=== PATIENT | female | born 1970 | race Caucasian/White ===

== ENCOUNTER 2024-04-09 14:19 | Emergency (ER) | payer BC, OTHER, SELFPAY ==
[2024-04-09 14:20] VITALS: BMI 23.1
[2024-04-09 14:40] VITALS: BP 119/78; PULSE 100; RESP 16; TEMP 36.6; O2SAT 96
--- NOTE | 2024-04-09 15:15 | XR_ITS ---
Examination: Abdomen sonogram, Limited Date and time of exam: April 09, 2024 1454 hours INDICATIONS: Abdominal pain beginning 2 days ago Technique: Real-time brown scale transabdominal sonographic images of the upper abdomen obtained. Findings: Multiple gallstones Gallbladder wall 0.7 cm Common bile duct enlarged 0.9 cm no definite stones Pancreatic head 2.3 cm, cystic lesion in the pancreatic head 15 mm Liver 15.3 cm no focal liver lesions Normal hepatopedal portal venous flow Patent IVC IMPRESSION: Cholelithiasis Suspicious for cholecystitis Enlarged common bile duct with cystic lesion in the pancreatic head, recommend MRCP follow-up
[2024-04-09] MEDS: ONDANSETRON ODT 4 MG TABRAP PO (15:21)
[2024-04-09] MEDS: HYDROcodone/APAP 5/325 TABLET 1 TAB PO (15:21)
--- NOTE | 2024-04-09 15:30 | PD.EDABDPN ---
ED Abdominal Pain RME/HPI General Chief Complaint: Abdominal Pain Stated complaint: ABD PAIN x 2 DAYS, HX GALLSTONES Time seen by provider: 04/09/24 15:23 Arrival date/time: 04/09/24 14:19 53-year-old female with no known medical history presents to the emergency room with a chief complaint of 10 out of 10 right upper quadrant abdominal pain and tenderness x 2 days. Source: patient Mode of arrival: ambulatory Limitations: no limitations Related Data Home Medications ?Medication ?Instructions ?Recorded ?Confirmed conjugated estrogens 0.9 mg tablet 0.9 mg PO QDAY 11/18/23 11/18/23 (Premarin) Allergies Allergy/AdvReac Type Severity Reaction Status Date / Time Penicillins Allergy Severe Swelling Verified 04/09/24 14:22 of Lip/Tongue/Throat Review of Systems Review of Systems Systems Reviewed: All systems reviewed, normal except as documented Constitutional Constitutional: Reports system reviewed and no additional complaints, except as documented, Denies fatigue, Denies fever(s), Denies headache(s) and Denies weakness Eyes Eyes: Reports system reviewed and no additional complaints, except as documented, Denies blurry vision and Denies change in vision ENT Ears, Nose, Mouth, and Throat: Reports system reviewed and no additional complaints, except as documented, Denies otalgia, Denies headache(s), Denies nasal congestion, Denies throat swelling and Denies vertigo Cardiovascular Cardiovascular: Reports system reviewed and no additional complaints, except as documented, Denies chest pain, Denies dyspnea and Denies dyspnea on exertion Respiratory Respiratory: Reports system reviewed and no additional complaints, except as documented, Denies chest congestion, Denies cough, Denies dyspnea, Denies dyspnea on exertion and Denies wheezing Gastrointestinal Gastrointestinal: Reports system reviewed and no additional complaints, except as documented, Reports abdominal pain, Reports cramping, Reports nausea and Reports vomiting Genitourinary Genitourinary: Reports system reviewed and no additional complaints, except as documented Musculoskeletal Musculoskeletal: Reports system reviewed and no additional complaints, except as documented and Denies back pain Integumentary/Breasts Skin/Breast: Reports system reviewed and no additional complaints, except as documented and Denies wounds Neurologic Neurologic: Reports system reviewed and no additional complaints, except as documented, Denies confusion, Denies headache(s), Denies lack of coordination, Denies vertigo and Denies weakness Psychiatric Psychiatric: Reports system reviewed and no additional complaints, except as documented, Denies anxiety, Denies confusion, Denies depression, Denies paranoia, Denies suicidal ideation and Denies tactile hallucinations Endocrine Endocrine: Reports system reviewed and no additional complaints, except as documented and Denies fatigue Hematologic/Lymphatic Hematologic/Lymphatic: Reports system reviewed and no additional complaints, except as documented and Denies lymphadenopathy Allergic/Immunologic Allergic/Immunologic: Reports system reviewed and no additional complaints, except as documented, Denies throat swelling, Denies urticaria and Denies wheezing Past Medical History Past Medical History NEUROLOGIC: Positive Neurological Disorders and Migraine; Negative Seizures CARDIAC: Positive Cardiac Disorders and Hypercholesterolemia; Negative Congestive Heart Failure RESPIRATORY: Positive Asthma (as child); Negative Chronic Obstructive Pulmonary Disease (COPD) GASTROINTESTINAL: Positive Gastrointestinal Disorders, Gastrointestinal Bleed, Hemorrhoids and Gastroesophageal Reflux Disease GENITOURINARY: Negative Genitourinary Disorders or Renal Disease MUSCULOSKELETAL: Positive Musculoskeletal Disorders and Arthritis (psoriatic arthritis) ENDOCRINE: Negative Endocrine Disorders, Diabetes Mellitus Type 1 or Diabetes Mellitus Type 2 HEMATOLOGIC: Positive Blood Disorders (thrombocytopenia) PSYCHO/SOCIAL: Positive Depression and Anxiety OTHER HISTORY: Positive Chicken Pox and Measles; Negative Falls, Blood Transfusions, Anesthesia Reactions or Cancer Surgical History SURGICAL: Positive Hysterectomy and Tubal Ligation Social History SMOKING STATUS: Never smoker ED Exam General Limitations: Present no limitations General appearance: Present alert and in no apparent distress Head Head exam: Present atraumatic Eye Eye exam: Present normal appearance, PERRL and EOMI ENT ENT exam: Present normal exam, normal oropharynx and mucous membranes moist Neck Neck exam: Present normal inspection, full ROM and trachea midline Chest Chest inspection: Present normal inspection and symmetric chest wall rise Respiratory Respiratory exam: Present normal lung sounds bilaterally Cardiovascular Cardiovascular exam: Present regular rate, normal rhythm and normal heart sounds Abdominal Exam Abdominal exam: Present soft, tenderness, normal bowel sounds and Carolina's sign; Absent distention, guarding, rebound or rigidity Abdominal tenderness: Present RUQ and moderate Extremities Exam Extremities exam: Present normal inspection and full ROM Back Exam Back exam: Present normal inspection and full ROM Neurological Exam Neurological exam: Present alert, oriented X3 and CN II-XII intact Psychiatric Psychiatric exam: Present normal affect and normal mood Skin Skin exam: Present warm, dry, intact and normal color Course Quality Measures none Orders Category Date Time Status US gall bladder Stat Exams 04/09/24 15:15 Ordered CBC Stat Lab 04/09/24 15:15 Ordered CMP [Comprehensive Metabolic Panel] Stat Lab 04/09/24 15:15 Ordered HCG Qualitative,Urine Stat Lab 04/09/24 15:15 Ordered Lipase Stat Lab 04/09/24 15:15 Ordered UA [Urinalysis] Stat Lab 04/09/24 15:15 Ordered Urine Culture Stat Lab 04/09/24 15:15 Ordered HYDROcodone*/APAP 5/325 [[place] 5/325] Med 04/09/24 15:15 Discontinued 1 tab PO X1 ONE Ondansetron Odt [Zofran Odt] Med 04/09/24 15:15 Discontinued 4 mg PO X1 ONE Vital Signs Vital signs: Vital Signs Temperature 98 F 04/09/24 14:40 Pulse Rate 100 04/09/24 14:40 Respiratory Rate 16 04/09/24 14:40 Blood Pressure 119/78 04/09/24 14:40 Pulse Oximetry (%) 96 04/09/24 14:40 Oxygen Delivery Method Room Air 04/09/24 14:40 O2 saturation 96% within normal limits Abdominal Pain MDM MDM Narrative MDM Narrative:: 53-year-old female with no known medical history presents to the emergency room with a chief complaint of 10 out of 10 right upper quadrant abdominal pain and tenderness x 2 days. Patient data External records reviewed:: [facility] previous records Clinical information provided by:: patient Social determinants that could affect healthcare access:: none Patient has the following chronic illnesses:: No chronic illness How is presenting disease/condition affected by chronic disease/condition?: no chronic disease Evaluation data The following diagnostics were reviewed and interpreted by me:: lab results and radiology exam(s) Lab and/or radiology exams considered but not ordered:: Labs and radiology exams considered and ordered Interpretation Summary: Ultrasound gallbladder- Medications / Prescriptions Medications or Prescriptions considered but not ordered:: Medication given Medication administrations:: Medication Administration History Discontinued Medications Hydrocodone Bitart/Acetaminophen (Hydrocodone/Apap 5/325 Tablet) 1 tab PO X1 ONE Stop: 04/09/24 15:16 Last Admin: 04/09/24 15:21 Dose: 1 tab Documented By: Ondansetron HCl (Ondansetron Odt 4 Mg Tabrap) 4 mg PO X1 ONE; Protocol Stop: 04/09/24 15:16 Last Admin: 04/09/24 15:21 Dose: 4 mg Documented By: Medication given Consultations Consultation(s) initiated? (list below): No Diagnosis Differential diagnosis abdominal pain: abdominal pain, gastroenteritis, pancreatitis and other (Cholelithiasis/cholecystitis) Admission Indicated Admission indicated?: not indicated Admission Request Was there a request for admission?: No Disposition Plan Disposition Plan: Discharge Discharge Attestation Discharge Attestation: The patient and all family members were given an opportunity to ask questions and understood the discharge instructions. Discharge instructions specifically effects, indications for sooner follow up or return to the emergency department, and the expected course of current diagnosis. Patient condition: Stable Discharge Plan Prescriptions/Referrals Prescriptions/Med Rec: No Action Premarin 0.9 mg tablet 0.9 mg PO QDAY Patient Comments: take 1 tablet by mouth once daily Patient/Caregiver Discharge Instructions Print Language: Romanian
[2024-04-09 15:56] LABS: Basophils % (Auto) 0 % (0-2.5); Eosinophils # (Auto) 0.1 Thou/mm3 (0.0-0.5); Eosinophils % (Auto) 2 % (0-10); Hematocrit 34.3 % (36.0-46.0); Hemoglobin 11.5 g/dL (12.0-16.0); Immature Granulocytes % (Auto) 0 % (0-0); Lymphocytes # (Auto) 0.9 Thou/mm3 (1.0-4.8); Lymphocytes % (Auto) 19 % (10-50); Mean Corpuscular HGB Conc 33.5 g/dl (31.0-37.0); Mean Corpuscular Volume 98 fL (80-100); Monocytes # (Auto) 0.4 Thou/mm3 (0.0-0.8); Monocytes % (Auto) 8 % (0-12); Neutrophils # (Auto) 3.2 Thou/mm3 (1.8-7.7); Neutrophils % (Auto) 70 % (37-80); Nucleated Red Blood Cell % 0 /100 WBC (0); RDW Standard Deviation 57.2 fL (36.4-46.3); Red Blood Count 3.49 Miln/mm3 (4.00-5.20); White Blood Count 4.6 Thou/mm3 (3.6-11.0)
[2024-04-09 15:58] LABS: Platelet Count 76 Thou/mm3 (140-440)
[2024-04-09 16:18] LABS: Collection Type, Urine Clean Catch
[2024-04-09 16:18] LABS: Alanine Aminotransferase 421 U/L (10-49); Albumin, Serum 4.7 gm/dL (3.5-5.0); Albumin/Globulin Ratio 1.7 (1.2-2.2); Alkaline Phosphatase 308 U/L (46-116); Anion Gap 6 (7-16); Aspartate Amino Transferase 357 U/L (0-34); BUN/Creatinine Ratio 15 Ratio (12-20); Bilirubin,Total 2.2 mg/dL (0.3-1.2); Blood Urea Nitrogen 12 mg/dL (9-23); Calcium 9.9 mg/dL (8.3-10.6); Calcium (Corrected) 9.9 mg/dL (8.5-10.1); Carbon Dioxide 30.4 mMol/L (20.0-31.0); Chloride 105 mMol/L (98-107); Creatinine (Component) 0.8 mg/dL (0.6-1.3); Estimated Creatinine Clearance 71.8 mL/min (>60); Globulin 2.7 gm/dL (2.3-3.5); Glucose 105 mg/dL (74-106); Lipase 83 U/L (12-53); Osmolality,Calculated 280 (275-295); Potassium 4.2 mMol/L (3.4-5.1); Sodium 141 mMol/L (136-145); Total Protein 7.4 gm/dL (5.7-8.2); eGFR > 60 See Note
--- NOTE | 2024-04-09 16:31 | PD.EDRME ---
Rapid Medical Screening Exam E Arrival date/time: 04/09/24 14:19 53-year-old female with no known medical history presents to the emergency room with a chief complaint of 10 out of 10 right upper quadrant abdominal pain and tenderness x 2 days. I have greeted and performed a focused initial assessment of this patient. A comprehensive ED assessment and evaluation of the patient, analysis of all test results, and completion of the medical decision making process will be conducted by additional ED providers. Chief Complaint: Abdominal Pain Time Seen by Provider: 04/09/24 15:23 Vital signs: Vital Signs Temperature 98 F 04/09/24 14:40 Pulse Rate 100 04/09/24 14:40 Respiratory Rate 16 04/09/24 14:40 Blood Pressure 119/78 04/09/24 14:40 Pulse Oximetry (%) 96 04/09/24 14:40 Oxygen Delivery Method Room Air 04/09/24 14:40 Vital signs reviewed by provider: Yes
[2024-04-09 16:53] LABS: HCG Qualitative,Urine Negative
[2024-04-09 16:56] LABS: Bacteria,Urine Rare; Bilirubin,Urine 2+ (Negative); Blood,Urine Negative (Negative); Clarity,Urine Turbid (Clear/Hazy); Color,Urine Drk-Yellow (Lt Yel-Yel); Glucose, Urine Negative (Negative); Ketones,Urine Negative (Negative); Leukocyte Esterase,Urine Negative (Negative); Nitrite,Urine Negative (Negative); Protein,Urine 1+ (Neg - Trace); RBC,Urine < 1 /hpf (0-3); Specific Gravity,Urine 1.029 (1.001-1.035); Squamous Epithelial Cell,Urine 24 /hpf (0-5); WBC,Urine 4 /hpf (0-5)
[2024-04-09 17:11] LABS: Slide Review Platelets confirmed
[2024-04-09 17:43] VITALS: BP 114/73; PULSE 87; RESP 16; TEMP 36.4; O2SAT 96
[2024-04-09 18:22] VITALS: BP 117/80; PULSE 88; RESP 19; TEMP 36.7; O2SAT 100
--- NOTE | 2024-04-09 18:23 | PC.NURSE ---
Dr. Barker at bedside.
--- NOTE | 2024-04-09 18:38 | EDNOTE_ITS ---
ED Abdominal Pain RME/HPI General Chief Complaint: Abdominal Pain Stated complaint: ABD PAIN x 2 DAYS, HX GALLSTONES Time seen by provider: 04/09/24 15:23 Arrival date/time: 04/09/24 14:19 Source: patient Mode of arrival: ambulatory Limitations: no limitations RME / HPI RME / HPI narrative: 04/09/24 14:19 53-year-old female with no known medical history presents to the emergency room with a chief complaint of 10 out of 10 right upper quadrant abdominal pain and tenderness x 2 days. I have greeted and performed a focused initial assessment of this patient. A comprehensive ED assessment and evaluation of the patient, analysis of all test results, and completion of the medical decision making process will be conducted by additional ED providers. Dr. Lomax?s Main ED Evaluation: 53-year-old female with history of hypercholesterolemia, asthma, depression, anxiety, thrombocytopenia accompanied by spouse who presents to the emergency department for complaints of abdominal pain. Patient notes onset began about 2 days ago. It is accompanied with nausea, vomiting and nonbloody diarrhea. She denies any other associated symptoms, aggravating factors or medical complaints. She reports she took Tylenol at about 0800 and Motrin at about 1400 with minor relief. She describes the pain as sharp in nature and rates the pain 8 out of 10 in severity. No history of tobacco or substance use. History of social alcohol use. - - - - - - - - - - - - Chief complaint: Abdominal pain HPI: Patient is a 53-year-old female with past medical history of hypercholesterolemia, asthma, pancreatitis, and mood symptoms secondary to postmenopausal, who presented to the ED, accompanied by spouse for persistent abdominal pain over the last 48 hours. Patient states pain changes in intensity from between 4?8/10, and is worse on eating. Pain is mostly localized in the right upper quadrant and epigastric region. She has had similar symptoms in the past, with last ED visit in August 2023. She denies any changes in diet recently, however endorses severe food intolerance over the last 48 hours. She has had multiple episodes of nonbloody, nonbilious vomiting and severe nausea. She does complain of intermittent constipation, however no issues in bowel movements recently. Patient took Tylenol at about 0800 and Motrin at about 1400 with minor relief. Currently she describes pain as sharp in nature, located in the right upper quadrant region, and 8/10 in severity. On imaging, abdominal ultrasound was remarkable for cholelithiasis and CBD dilation. Patient was given Dilaudid 1.5 x 1 in the ED, and was informed would likely need transfer for ERCP, to different facility. Medication list: Wellbutrin Estrogen supplements Allergies: Penicillin?angioedema Social history: Marital?Status:? Tobacco?Use:?Denies ETOH?Use:?Socially Drug?Note:?Denies Social?History?Note:?Lives?with? Family history: Father?colon cancer at the age of 55 Patient had a recent colonoscopy in November 2023 pending biopsy results - - - - - - - - - - - - - - - - - - - - - MD complaint: abdominal pain Onset (ago): day(s) Consistency: colicky Location: RUQ and epigastric Severity: severe Severity scale (1-10): 8 Quality: cramping and aching Radiation: LUQ and epigastric Migration to: no migration Relieving factors: nothing Exacerbating factors: eating Context: history of similar episodes Associated symptoms: nausea, vomiting and constipation Treatments prior to arrival: NSAIDs Related Data Home Medications ?Medication ?Instructions ?Recorded ?Confirmed conjugated estrogens 0.9 mg tablet 0.9 mg PO QDAY 11/18/23 11/18/23 (Premarin) Allergies Allergy/AdvReac Type Severity Reaction Status Date / Time Penicillins Allergy Severe Swelling Verified 04/09/24 14:22 of Lip/Tongue/Throat Review of Systems Review of Systems Systems Reviewed: All systems reviewed, normal except as documented Narrative Review of Systems: GENERAL: Denies fevers/chills or diaphoresis. HEENT: Denies headache or visual/hearing changes. Denies nasal discharge. NEURO: Denies unusual weakness or difficulty speaking. CARDIO: Denies chest pain or palpitations. PULM: Denies SOB, coughing, or wheezing. GI: RUQ abdominal pain, N/V, no C/D. Reports having BMs URO: Denies burning/itching/pain/urinary changes. WHEAT WASHER: Denies menstrual changes, hot flashes. MSK/EXT/SKIN: Denies joint/skeletal/muscle pain, issues/changes in upper or lower extremities, itchiness, or superficial pain. PSYCH: Cooperative, pleasant mood & affect. The rest of the review of systems is otherwise negative. Past Medical History Past Medical History NEUROLOGIC: Positive Neurological Disorders and Migraine; Negative Seizures CARDIAC: Positive Cardiac Disorders and Hypercholesterolemia; Negative Congestive Heart Failure RESPIRATORY: Positive Asthma (as child); Negative Chronic Obstructive Pulmonary Disease (COPD) GASTROINTESTINAL: Positive Gastrointestinal Disorders, Gastrointestinal Bleed, Hemorrhoids and Gastroesophageal Reflux Disease GENITOURINARY: Negative Genitourinary Disorders or Renal Disease MUSCULOSKELETAL: Positive Musculoskeletal Disorders and Arthritis (psoriatic arthritis) ENDOCRINE: Negative Endocrine Disorders, Diabetes Mellitus Type 1 or Diabetes Mellitus Type 2 HEMATOLOGIC: Positive Blood Disorders (thrombocytopenia) PSYCHO/SOCIAL: Positive Depression and Anxiety OTHER HISTORY: Positive Chicken Pox and Measles; Negative Falls, Blood Transfusions, Anesthesia Reactions or Cancer Surgical History SURGICAL: Positive Hysterectomy and Tubal Ligation Social History SMOKING STATUS: Never smoker ED Exam Narrative Physical exam: Constitutional Alert, afebrile, oriented x4 and nauseous HEENT Vision grossly intact. Patent nares. Trachea midline. Respiratory Chest normal on inspection and clear to auscultation bilaterally. Cardiovascular S1 and S2 audible, RRR. No murmurs or carotid bruit. No gross JVD. Abdominal Soft, RUQ (+douglas's sign) and epigastric tenderness to palpation. BS + Genitourinary No bladder tenderness, no flank pain. Normal to palpation. Musculoskeletal Extremities tone within normal limits. No LE edema. Neurological CN II - XII grossly intact. Extremity motor and sensation grossly intact. Skin Warm, dry and intact. No apparent lesions. No jaundice. Psychiatric Patient has a good affect, is cooperative. General Limitations: Present no limitations Course Quality Measures none Orders Category Date Time Status EKG (ED ONLY) *Do not use* NOW Care 04/09/24 18:44 Completed EKG (ED Only) Stat Exams 04/09/24 18:43 Ordered US gall bladder Stat Exams 04/09/24 15:15 Completed CBC Stat Lab 04/09/24 15:43 Completed CMP [Comprehensive Metabolic Panel] Stat Lab 04/09/24 15:43 Completed HCG Qualitative,Urine Stat Lab 04/09/24 15:59 Completed Lipase Stat Lab 04/09/24 15:43 Completed UA [Urinalysis] Stat Lab 04/09/24 15:59 Completed Urine Culture Stat Lab 04/09/24 15:59 Received HYDROcodone*/APAP 5/325 [[place] 5/325] Med 04/09/24 15:15 Discontinued 1 tab PO X1 ONE HYDROmorphone INJ [Dilaudid Inj] Med 04/09/24 18:56 Discontinued 0.5 mg IVP Q30MIN PRN HYDROmorphone INJ [Dilaudid Inj] Med 04/09/24 18:43 Discontinued 0.5 mg IVP Q4HR PRN Ondansetron Odt [Zofran Odt] Med 04/09/24 15:15 Discontinued 4 mg PO X1 ONE Sodium Chloride 0.9% 1000 ml [Ns] 1,000 ml Med 04/09/24 18:45 Discontinued IV 250 mls/hr Vital Signs Vital signs: Vital Signs Temperature 98 F 04/09/24 14:40 Pulse Rate 100 04/09/24 14:40 Respiratory Rate 16 04/09/24 14:40 Blood Pressure 119/78 04/09/24 14:40 Pulse Oximetry (%) 96 04/09/24 14:40 Oxygen Delivery Method Room Air 04/09/24 14:40 Abdominal Pain MDM MDM Narrative MDM Narrative:: 19:47 Case d/w Dr. Aldana, gastroenterology at [facility], who was made aware of the patient?s HPI, PMHx, lab and/or radiology results. Accepts patient for ER to ER transfer. Scribe Attestation: IAbdoul, am scribing for and in the presence of Dr. Lomax. Provider Notation: Although this document has been carefully reviewed, there may still be some phonetic and other typographical errors. These errors are purely grammatical due to imperfections in the software program and should not be construed in any way to compromise the substance of the patient's medical care during this visit. Patient data External records reviewed:: [facility] previous records Clinical information provided by:: patient Social determinants that could affect healthcare access:: none Patient has the following chronic illnesses:: Hypercholesterolemia, Asthma, Psoriatic Arthritis, Thrombocytopenia, Depression, Anxiety, Hysterectomy, Tubal Ligation How is presenting disease/condition affected by chronic disease/condition?: uneffected by Evaluation data The following diagnostics were reviewed and interpreted by me:: lab results and radiology exam(s) Lab and/or radiology exams considered but not ordered:: None Interpretation Summary: Examination: Abdomen sonogram, Limited Date and time of exam: April 09, 2024 1454 hours INDICATIONS: Abdominal pain beginning 2 days ago Findings: Multiple gallstones Gallbladder wall 0.7 cm Common bile duct enlarged 0.9 cm no definite stones Pancreatic head 2.3 cm, cystic lesion in the pancreatic head 15 mm Liver 15.3 cm no focal liver lesions Normal hepatopedal portal venous flow Patent IVC IMPRESSION: Cholelithiasis Suspicious for cholecystitis Enlarged common bile duct with cystic lesion in the pancreatic head, recommend MRCP follow-up Dictated By: Mendoza Wells MD Medications / Prescriptions Medications or Prescriptions considered but not ordered:: None Medication administrations:: Medication Administration History Discontinued Medications Hydrocodone Bitart/Acetaminophen (Hydrocodone/Apap 5/325 Tablet) 1 tab PO X1 ONE Stop: 04/09/24 15:16 Last Admin: 04/09/24 15:21 Dose: 1 tab Documented By: Hydromorphone HCl (Hydromorphone Inj 2 Mg/Ml Vial) 0.5 mg IVP Q4HR PRN PRN Reason: pain 5-10 Stop: 04/14/24 18:42 Hydromorphone HCl (Hydromorphone Inj 2 Mg/Ml Vial) 0.5 mg IVP Q30MIN PRN PRN Reason: pain 5-10 Stop: 04/14/24 18:42 Last Admin: 04/09/24 19:32 Dose: 0.5 mg Documented By: SARABJIT Sodium Chloride (Ns) 1,000 mls @ 250 mls/hr IV .Q4H EDIS Stop: 05/09/24 18:44 Last Admin: 04/09/24 19:34 Dose: 250 mls/hr Documented By: SARABJIT Ondansetron HCl (Ondansetron Odt 4 Mg Tabrap) 4 mg PO X1 ONE; Protocol Stop: 04/09/24 15:16 Last Admin: 04/09/24 15:21 Dose: 4 mg Documented By: As above Consultations Consultation(s) initiated? (list below): Yes Consultation #1 (Physician, Specialty, Details): See MDM Diagnosis Differential diagnosis abdominal pain: other (Choledocholithiasis, Cholelithiasis, Cholecystitis, Cholangitis, Pancreatitis, Atypical angina) Most likely diagnosis given after review of the tests above:: Choledocholithiasis Admission Indicated Admission indicated?: not indicated Explain why admission is indicated or not indicated:: Higher level of care for ERCP Admission Request Was there a request for admission?: No Disposition Plan Disposition Plan: Transfer (ER to ER transfer) Discharge Plan Plan Patient Disposition: [facility] Being Transferred to: [facility] Needed for Transfer: Gastroenterology Prescriptions/Referrals Prescriptions/Med Rec: No Action Premarin 0.9 mg tablet 0.9 mg PO QDAY Patient Comments: take 1 tablet by mouth once daily Referrals: Caio (PCP),MD Neftaly [Primary Care Provider] - In 1 week Problem List Clinical Impression: Abdominal pain Patient/Caregiver Discharge Instructions Print Language: Serbian Stand Alone Forms: Clarice Award Info., Patient Portal Info Letter
[2024-04-09] MEDS: HYDROmorphone INJ 2 MG/ML VIAL 0.5 MG IVP (19:32)
[2024-04-09] MEDS: SODIUM CHLORIDE 0.9% 1000 ML 1,000 ML 250 ML IV (19:34)
[2024-04-09 19:38] VITALS: BP 110/74; PULSE 82; RESP 16; TEMP 36.6; O2SAT 97
--- NOTE | 2024-04-09 19:53 | PC.NURSE ---
1926 [address]TA[address] [facility] [email or web address] [facility] SENT. 1930 CONTA[address]ED [facility] SENT. [address] MEJIA TALKING TO [facility] AT THIS TIME.
--- NOTE | 2024-04-09 20:14 | PC.NURSE ---
1952 PT ACCEPTED TO [facility] BY DR CHANDLER. REPORT ED TO ED [phone].
[2024-04-09 20:38] VITALS: BP 138/85; PULSE 83; RESP 16; TEMP 36.8; O2SAT 98
--- NOTE | 2024-04-09 20:45 | PC.NURSE ---
Report called to hernan [facility]
== END 2024-04-09 20:54 | disposition short-term general hospital (02) ==
PROVIDERS: Nurse Practitioner Family; Emergency Provider Emergency Medicine; PCP Family Medicine
DX: K80.20 Calculus of gallbladder without cholecystitis without obstruction (principal); K83.8 Other specified diseases of biliary tract; K86.2 Cyst of pancreas
CPT/HCPCS: 36415; 76705; 80053; 81001; 81025; 83690; 85025; 87086; 96374; 99284; J3490; J7030; Q0162; A9270

== ENCOUNTER 2024-06-29 09:25 | Day surgery (SDC) | payer BC, OTHER, SELFPAY ==
[2024-06-28 12:17] VITALS: BMI 27.3
[2024-06-29] VITALS (8 sets, daily range): BP systolic 125–149; BP diastolic 88–97; PULSE 102–111; RESP 11–19; TEMP 36.4–37.1; O2SAT 92–98; BMI 27.1
[2024-06-29] MEDS: ONDANSETRON INJ 2 MG/ML INJ 2 ML 4 MG IV (11:55)
[2024-06-29] MEDS: MIDAZOLAM INJ 1 MG/ML VIAL 2 ML (ASD USE ONLY) 2 MG IV (11:56)
[2024-06-29] MEDS: LIDOCAINE JELLY 2% (Urojet) 10 ML TUBE TOP (11:56)
[2024-06-29] MEDS: fentaNYL CIT INJ 50 mCg/ML AMP 2ML (ASD USE ONLY) IV (11:56)
[2024-06-29] MEDS: DiphenhydrAMINE INJ 50 MG/ML VIAL 25 MG IV (11:56)
[2024-06-29] MEDS: SODIUM CHLORIDE 0.9% 500 ML 500 ML 20 ML IV (11:56)
== END 2024-06-29 12:57 | disposition home or self-care (01) ==
PROVIDERS: PCP Family Medicine; Referring Provider Specialist; Visit Provider Specialist
PROC: 0DJD8ZZ Inspection of Lower Intestinal Tract, Via Natural or Artificial Opening Endoscopic (ICD-10-PCS; CPT 45330; principal; 2024-06-29 10:45)
DX: K64.3 Fourth degree hemorrhoids (principal); Z80.0 Family history of malignant neoplasm of digestive organs
CPT/HCPCS: 46221; 45330; A4649; J1200; J2250; J2405; J3010; J7040

== ENCOUNTER → 2024-07-25 | Outpatient (CLI) | payer BC, SELFPAY ==
--- NOTE | 2024-07-25 08:00 | XR_ITS ---
Examination: Breast ultrasound, unilateral, left complete Date and time of exam: July 25, 2024 0801 hours INDICATIONS: Mammogram September 10, 2022 25 mm focal asymmetry outer left breast, history biopsy BI-RADS 4 suspicious nodule 1:00 position left breast, which measured 18 x 29 mm on left breast sonogram 12/15/2021 Technique: Real-time brown scale ultrasonographic imaging performed left breast including all 4 quadrants as well as nipple retroareolar and axillary region. Findings: 2:00 nodule circumscribed 4 x 4 mm 3:00 cyst 5 x 11 mm Retroareolar nodule lobular margins 4 x 9 mm Retroareolar nodule 4 x 9 mm indistinct margins with breast biopsy marker IMPRESSION: BI-RADS Category 3: Probably benign findings One additional 6 month left breast sonogram follow-up recommended to document stability of multiple solid nodules described above
--- NOTE | 2024-07-25 08:30 | XR_ITS ---
Examination: Screening digital mammography, bilateral Computer aided detection 3-D breast Tomosynthesis, bilateral Date and time of exam: July 25, 2024 0829 hours Compared to mammograms dating to August 30, 2008 Indication: Screening, patient states lump left breast note is beginning 3 weeks ago, family history breast cancer, history left breast mass biopsy January 11, 2022, negative Technique: Nonmagnified MLO, CC views of the breasts to been obtained, reconstructed from 3-D Tomosynthesis images. R2 computer aided detection program utilized for evaluation of suspicious masses and/or abnormal calcifications. 3-D Tomosynthesis images obtained. Findings: The breasts are extremely dense, which limits the sensitivity of mammography Architectural distortion left breast which may relate to the patient's prior left breast biopsy 33 mm focal asymmetry 12 to 1:00 position left breast anterior depth Impression: BI-RADS Category 0: Incomplete: Need additional imaging evaluation Recommend follow-up spot tomographic views of 33 mm focal asymmetry 12 to 1:00 position left breast as well as repeat left breast sonography with the radiologist in attendance
== END | disposition home or self-care (01) ==
PROVIDERS: PCP Family Medicine; Referring Provider Family Medicine; Visit Provider Family Medicine
DX: Z12.31 Encounter for screening mammogram for malignant neoplasm of breast (principal); N63.25 Unspecified lump in the left breast, overlapping quadrants; N63.21 Unspecified lump in the left breast, upper outer quadrant; Z80.3 Family history of malignant neoplasm of breast
CPT/HCPCS: 76641; 77063; 77067

== ENCOUNTER → 2024-08-14 | Outpatient (CLI) | payer BC, SELFPAY ==
--- NOTE | 2024-08-14 12:00 | XR_ITS ---
Examination: Breast ultrasound, unilateral, left complete Date and time of exam: August 14, 2024 1154 hours INDICATIONS: Mammogram July 25, 2024 33 mm focal asymmetry 1220 1:00 position left breast Technique: Real-time brown scale ultrasonographic imaging performed left breast including all 4 quadrants as well as nipple retroareolar and axillary region. Findings: 1:00 oval mass circumscribed 4 x 3 mm 2:00 oval mass circumscribed 6 x 5 mm 3:00 cyst 9 x 5 mm Retroareolar oval mass lobular margins 6 x 6 mm IMPRESSION: BI-RADS Category 3: Probably benign findings One additional 6 month left breast sonogram follow-up is needed to document stability of multiple solid nodules described above
== END | disposition home or self-care (01) ==
PROVIDERS: PCP Family Medicine; Referring Provider Family Medicine; Visit Provider Family Medicine
DX: N63.25 Unspecified lump in the left breast, overlapping quadrants (principal); N63.21 Unspecified lump in the left breast, upper outer quadrant; N63.42 Unspecified lump in left breast, subareolar
CPT/HCPCS: 76641

== ENCOUNTER 2024-08-17 12:59 | Outpatient (AMB) | payer BC, SELFPAY ==
[2024-08-17 13:15] VITALS: BP 122/83; PULSE 94; RESP 18; TEMP 36.6; O2SAT 96; BMI 27.7
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
== END 2024-08-17 13:49 | disposition home or self-care (01) ==
LOC: HODSRG 12:59
PROVIDERS: PCP Family Medicine; Referring Provider Specialist; Supervising Provider Surgery; Visit Provider Surgery
DX: K64.9 Unspecified hemorrhoids (principal)
CPT/HCPCS: 99213; G0463

== ENCOUNTER 2024-09-05 05:40 | Day surgery (SDC) | payer BC, SELFPAY ==
[2024-09-04 09:05] VITALS: BMI 27.3
[2024-09-04 09:54] LABS: Basophils % (Auto) 0 % (0-2.5); Eosinophils # (Auto) 0.2 Thou/mm3 (0.0-0.5); Eosinophils % (Auto) 3 % (0-10); Hematocrit 31.6 % (36.0-46.0); Immature Granulocytes % (Auto) 8 % (0-0); Immature Granulocytes Auto 0.43 Thou/mm3 (0.00-0.00); Lymphocytes # (Auto) 1.1 Thou/mm3 (1.0-4.8); Lymphocytes % (Auto) 19 % (10-50); Mean Corpuscular HGB Conc 34.8 g/dl (31.0-37.0); Mean Corpuscular Volume 95 fL (80-100); Monocytes # (Auto) 0.3 Thou/mm3 (0.0-0.8); Monocytes % (Auto) 6 % (0-12); Neutrophils # (Auto) 3.5 Thou/mm3 (1.8-7.7); Neutrophils % (Auto) 64 % (37-80); Nucleated Red Blood Cell % 0 /100 WBC (0); Platelet Count 95 Thou/mm3 (140-440); Red Blood Count 3.33 Miln/mm3 (4.00-5.20); White Blood Count 5.5 Thou/mm3 (3.6-11.0)
[2024-09-04 10:02] LABS: Partial Thromboplastin Time 25.5 Seconds (22.0-36.0); Prothrombin Time 10.7 Seconds (9.0-12.2)
[2024-09-04 10:22] LABS: Anion Gap 8 (7-16); BUN/Creatinine Ratio 14 Ratio (12-20); Blood Urea Nitrogen 11 mg/dL (9-23); Calcium 9.4 mg/dL (8.3-10.6); Carbon Dioxide 28.6 mMol/L (20.0-31.0); Chloride 102 mMol/L (98-107); Creatinine (Component) 0.8 mg/dL (0.6-1.3); Estimated Creatinine Clearance 71.3 mL/min (>60); Glucose 97 mg/dL (74-106); Osmolality,Calculated 276 (275-295); Potassium 4.1 mMol/L (3.4-5.1); Sodium 139 mMol/L (136-145); eGFR > 60 See Note
--- NOTE | 2024-09-04 14:25 | SUR.PREOP ---
Pt's platelets 95, Dr Leram notified and stated its ok but inform Dr Schafer, message left with Saadia VOGT.
[2024-09-05] VITALS (8 sets, daily range): BP systolic 106–125; BP diastolic 64–80; PULSE 88–98; RESP 12–20; TEMP 36.3–36.5; O2SAT 95–100; BMI 28.4
--- NOTE | 2024-09-05 08:26 | SUR.PHASEI ---
0826 Patient arrived to recovery resting comfortably in [facility], on oxygen 10L via oxy mask with an oral airway in place, breathing unlabored, vital signs stable, dressing intact to buttock; abd pad, mesh underwear, no bleeding noted, report received from Manish LIVINGSTON and Mendoza SIMPSON/ Amy SRNA
--- NOTE | 2024-09-05 08:27 | PD.SUROPNT ---
Date of Procedure 09/05/24 Pre Op Diagnosis Symptomatic hemorrhoids Post Op Diagnosis Same Procedure Transanal hemorrhoidal dearterialization Findings Internal and external hemorrhoids Procedure Description After discussion of risks and benefits, patient was brought to the operating room, SCDs were placed and general anesthesia was induced. She was placed in lithotomy position with proper padding and was prepped and draped in the usual sterile fashion. After a time out, transanal hemorrhoidal dearterialization was undertaken at the 1, 3, 5, 7, 9 and 11:00 positions. To manage the symptomatic external hemorrhoids, mucopexy was also undertaken at the 5, 7 and 9:00 positions. Left and right pudendal nerve blocks were performed as well as a local block for a total of 30 cc of half percent Marcaine. Patient was returned to supine position and extubated without complication. She was brought to PACU in stable condition Pathology / specimen None Estimated Blood Loss 20 Surgeon Mari Schafer MD Surgical Staff Operation Date: 09/05/24 07:30 <No data on this case meets the specified criteria>
--- NOTE | 2024-09-05 08:30 | PD.SURDS ---
Planned Discharge Date 09/05/24 DS: Providers Provider Primary care physician: Neftaly Kearney MD Attending Provider on Admission: Mari Schafer MD Attending Provider on DC: Mari Schafer MD Discharging Provider: Mari Schafer MD Diagnosis Discharge Diagnosis (1) Hemorrhoids: Status: Acute Problem List Completed Was Problem List Reviewed/Reconciled?: Yes Exam Vital Signs Temp Pulse Resp BP Pulse Ox 97.6 F 91 17 125/78 95 09/05/24 06:15 09/05/24 06:15 09/05/24 06:15 09/05/24 06:15 09/05/24 06:15 Discharge Plan Plan Patient Disposition: HOME (Self Care) Prescriptions/Referrals Prescriptions/Med Rec: New tramadol 50 mg tablet 50 mg PO Q6H PRN (Reason: pain) Qty: 30 0RF Rx Instructions: Take 1 tab every 6 hours as needed for moderate-severe pain ibuprofen 600 mg tablet 600 mg PO Q6H PRN (Reason: pain) Qty: 30 0RF Rx Instructions: Take 1 tab every 6 hours as needed for mild-moderate pain No Action bupropion HCl 300 mg tablet extended release 24 hr 300 mg PO QAM Tremfya 100 mg/mL auto-injector 100 mg SUBCUT .COMPLEX Rx Instructions: 100 mg subcutaneously; every 12 weeks Premarin 0.9 mg tablet 0.9 mg PO QDAY Patient Comments: take 1 tablet by mouth once daily Referrals: Mari Schafer MD [Physician] - (You will receive a phone call to confirm a follow-up appointment with me in 6 weeks) Caio (PCP),MD Neftaly [Primary Care Provider] - Patient/Caregiver Discharge Instructions Other Discharge Activity Instructions:: Avoid constipation and diarrhea You may continue sitz baths as needed for pain, bleeding, itching and swelling starting tomorrow 6/5 If you develop pain that is not managed by medications, fever, bleeding that does not stop or difficulty urinating please seek care in ER Education Materials: Discharge Instructions for ... Print Language: Frisian Stand Alone Forms: Clarice Award Info., Patient Portal Info Letter Discharge Order Discharge Orders: Discharge (Routine); Ordered 09/05/24 Ordered By: Mari Schafer Results Results: Laboratory Laboratory results: results reviewed Procedures Procedure Date 09/05/24 Procedures Transanal hemorrhoidal dearterialization
[2024-09-05] MEDS: HYDROmorphone INJ 2 MG/ML VIAL 0.5 MG IVP (08:58)
[2024-09-05] MEDS: fentaNYL CIT INJ 50 mCg/ML AMP 2ML IVP (09:11)
--- NOTE | 2024-09-05 09:45 | SUR.PHASEII ---
0945 Patient meets discharge criteria from recovery, awake and alert, breathing unlabored, vital signs stable, denies pain, dressing intact; no bleeding noted, voided in the restroom prior to discharge, eating ice chips; tolerating well, denies nausea, able to dress herself into her clothing, discharge instructions given to patient and patients daughter via speaker phone as daughter has small child in the car, discharge instructions signed at car-side, patient given all her belongings prior discharge, transported via wheelchair and left in a private vehicle.
== END 2024-09-05 09:45 | disposition home or self-care (01) ==
PROVIDERS: PCP Family Medicine; Referring Provider Surgery; Visit Provider Surgery
PROC: (CPT 46948; principal; 2024-09-05 07:30)
DX: K64.4 Residual hemorrhoidal skin tags (principal); K64.8 Other hemorrhoids
CPT/HCPCS: 46948; 36415; 80048; 85025; 85610; 85730; A4217; A4649; J0131; J1100; J1171; J2371; J2405; J2704; J3010; J3490

== ENCOUNTER → 2024-09-11 | Outpatient (CLI) | payer BC, SELFPAY ==
[2024-09-11 10:51] LABS: Basophils % (Auto) 0 % (0-2.5); Eosinophils # (Auto) 0.2 Thou/mm3 (0.0-0.5); Eosinophils % (Auto) 4 % (0-10); Hematocrit 30.7 % (36.0-46.0); Hemoglobin 10.8 g/dL (12.0-16.0); Immature Granulocytes % (Auto) 7 % (0-0); Immature Granulocytes Auto 0.38 Thou/mm3 (0.00-0.00); Lymphocytes % (Auto) 19 % (10-50); Mean Corpuscular HGB Conc 35.2 g/dl (31.0-37.0); Mean Corpuscular Volume 94 fL (80-100); Monocytes # (Auto) 0.5 Thou/mm3 (0.0-0.8); Monocytes % (Auto) 9 % (0-12); Neutrophils # (Auto) 3.2 Thou/mm3 (1.8-7.7); Neutrophils % (Auto) 60 % (37-80); Nucleated Red Blood Cell % 0 /100 WBC (0); Platelet Count 93 Thou/mm3 (140-440); RDW Standard Deviation 55.2 fL (36.4-46.3); Red Blood Count 3.27 Miln/mm3 (4.00-5.20); White Blood Count 5.3 Thou/mm3 (3.6-11.0)
[2024-09-11 11:10] LABS: Collection Type, Urine Clean Catch
[2024-09-11 11:12] LABS: Follicle Stimulating Hormone 95.75 mIU/mL (See Note)
[2024-09-11 11:14] LABS: Alanine Aminotransferase 85 U/L (10-49); Albumin, Serum 4.4 gm/dL (3.5-5.0); Albumin/Globulin Ratio 2.1 (1.2-2.2); Alkaline Phosphatase 101 U/L (46-116); Anion Gap 9 (7-16); BUN/Creatinine Ratio 18 Ratio (12-20); Bilirubin,Total 0.4 mg/dL (0.3-1.2); Blood Urea Nitrogen 14 mg/dL (9-23); Calcium 9.2 mg/dL (8.3-10.6); Calcium (Corrected) 9.2 mg/dL (8.5-10.1); Carbon Dioxide 29.4 mMol/L (20.0-31.0); Cardiac Risk Estimate 3.7 RATIO (3.7-5.6); Chloride 103 mMol/L (98-107); Cholesterol 197 mg/dL (132-200); Creatinine (Component) 0.8 mg/dL (0.6-1.3); Globulin 2.1 gm/dL (2.3-3.5); Glucose 99 mg/dL (74-106); HDL Cholesterol 53 mg/dL (40-60); LDL Cholesterol,Calculated 117 mg/dL (0-130); Osmolality,Calculated 281 (275-295); Potassium 4.2 mMol/L (3.4-5.1); Sodium 141 mMol/L (136-145); Thyroid Stimulating Hormone 1.75 uIU/mL (0.55-4.78); Total Protein 6.5 gm/dL (5.7-8.2); Triglycerides 136 mg/dL (30-150); eGFR > 60 See Note
[2024-09-11 11:35] LABS: Bilirubin,Urine Negative (Negative); Blood,Urine Negative (Negative); Clarity,Urine Clear (Clear/Hazy); Color,Urine Lt-Yellow (Lt Yel-Yel); Glucose, Urine Negative (Negative); Ketones,Urine Negative (Negative); Leukocyte Esterase,Urine Negative (Negative); Nitrite,Urine Negative (Negative); PH,Urine 6.5 (5.0-7.0); Protein,Urine Negative (Neg - Trace); RBC,Urine 1 /hpf (0-3); Specific Gravity,Urine 1.017 (1.001-1.035); Squamous Epithelial Cell,Urine 4 /hpf (0-5); Urobilinogen,Urine Negative mg/dL (0.0-1.0); WBC,Urine 1 /hpf (0-5)
[2024-09-18 06:56] LABS: Estrogen, Total, Serum* 170 pg/mL; Luteinizing Hormone* 46.7 mIU/mL
[2024-09-18 06:57] LABS: Progesterone,LC/MS* <0.1 ng/mL; Testosterone, Free,Dialysis 1.5 pg/mL (0.1-6.4); Testosterone, Total, Dialysis 17 ng/dL (2-45)
== END | disposition home or self-care (01) ==
LOC: COPL 09:57
PROVIDERS: PCP Family Medicine; Referring Provider Family Medicine; Visit Provider Family Medicine
DX: Z00.00 Encounter for general adult medical examination without abnormal findings (principal); Z13.29 Encounter for screening for other suspected endocrine disorder; Z13.21 Encounter for screening for nutritional disorder; Z13.220 Encounter for screening for lipoid disorders; Z13.1 Encounter for screening for diabetes mellitus; Z83.3 Family history of diabetes mellitus; Z13.0 Encounter for screening for diseases of the blood and blood-forming organs and certain disorders involving the immune mechanism
CPT/HCPCS: 36415; 80053; 80061; 81001; 82672; 83001; 83002; 84144; 84402; 84403; 84443; 85025; 87086

== ENCOUNTER 2024-10-12 14:44 | Outpatient (AMB) | payer BC, SELFPAY ==
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
[2024-10-12 15:08] VITALS: BP 124/84; PULSE 98; RESP 16; TEMP 36.2; O2SAT 96; BMI 24.5
== END 2024-10-12 15:11 | disposition home or self-care (01) ==
LOC: HODSRG 14:44
PROVIDERS: PCP Family Medicine; Referring Provider Family Medicine; Supervising Provider Surgery; Visit Provider Surgery
DX: Z48.815 Encounter for surgical aftercare following surgery on the digestive system (principal)
CPT/HCPCS: 99213; G0463